=== PATIENT | male | born 1960 | race Caucasian/White ===

== ENCOUNTER → 2020-01-25 | Outpatient (CLI) | payer OTHER | END | disposition home or self-care (01) | LOC: LABWHC1 13:38 | PROVIDERS: ATTEND Pediatrics | DX: Z20.828 Contact with and (suspected) exposure to other viral communicable diseases (principal) | CPT/HCPCS: U0003; C9803 ==

== ENCOUNTER → 2022-03-04 | Outpatient (CLI) | payer MEDICAID | END | disposition home or self-care (01) | LOC: LABWHC1 11:42 | PROVIDERS: ATTEND Urology | DX: R97.20 Elevated prostate specific antigen [PSA] (principal) | CPT/HCPCS: 36415; 84153 ==

== ENCOUNTER 2022-05-12 07:52 | Day surgery (SDC) | payer MEDICAID ==
[2022-05-10 11:58] VITALS: BMI 31.1
[~2022-05-12 07:52] MED LIST: LACTATED RINGERS 1,000 ML IV SCH; LIDOCAINE 1% (10MG/ML) FOR IV START INTRADERMA PRN
[2022-05-12 08:37] VITALS: TEMP 97
[2022-05-12 08:40] LABS: Glucose,Whole Blood 122 mg/dL (70-110)
[2022-05-12] MEDS ORDERED: PROPOFOL 10 MG/ML 20 ML VIAL IV ONE (09:25)
--- NOTE | 2022-05-12 09:45 | P.PCN ---
Date of Procedure: 05/12/22 Procedure(s) Performed: BRIEF HISTORY: Patient is a 61-year-old, pleasant, white male scheduled for an upper endoscopy as a part of evaluation of 1 and history of GERD of several years duration. He is currently. milligrams daily and continues to have daily symptoms and hence scheduled for an upper endoscopy to cook further. PROCEDURE PERFORMED: Esophagogastroduodenoscopy with biopsy PREOPERATIVE DIAGNOSIS: Long stent history of GERD. IV sedation per anesthesia. PROCEDURE: After informed consent was obtained, the patient was brought into the endoscopy unit. IV sedation was administered by Anesthesia under continuous monitoring. Initially the Olympus GIF-140 video endoscope was inserted into the mouth. Esophagus intubated without any difficulty. It was gradually advanced into the stomach and duodenum and carefully examined. The bulb and the second part of the duodenum appeared normal. The scope at this time was withdrawn to the stomach, adequately insufflated with air, and upon careful examination, mucosa of the antrum, had mild gastritis and biopsies were done from this area. The body, cardia and the fundus appeared normal. The scope was then withdrawn into the esophagus. The GE junction was located at 39 cm from the incisors. There was a short segment of Cook's esophagus extending 4-5 mm proximal to the GE junction which was biopsied. The rest of the esophagus appeared normal. There were no erosions or ulcerations seen and the patient tolerated the procedure well. IMPRESSION: 1. Mild antral gastritis. 2. Small hiatal hernia. 3. Short segment Cook'sesophagus. RECOMMENDATIONS: The findings of this examination were discussed with the patient [presence family. He was advised to follow with the biopsythe biopsy reveals presence of Cook's esophagus he can have a repeat upper endoscopy in 3 years. In the meantime I suggested that he increase the omeprazole to 20 mg twice daily and follow antireflux measures.
[2022-05-12 10:20] VITALS: RESP 16
[2022-05-12 10:21] VITALS: BP 154/85; PULSE 62
== END 2022-05-12 10:32 | disposition home or self-care (01) ==
LOC: ORWHC2ENDO 07:52
PROVIDERS: ATTEND Internal Medicine Gastroenterology
DX: K29.50 Unspecified chronic gastritis without bleeding (principal); K21.00 Gastro-esophageal reflux disease with esophagitis, without bleeding; K44.9 Diaphragmatic hernia without obstruction or gangrene; I10 Essential (primary) hypertension; E78.5 Hyperlipidemia, unspecified; E11.9 Type 2 diabetes mellitus without complications; N40.0 Benign prostatic hyperplasia without lower urinary tract symptoms; F90.9 Attention-deficit hyperactivity disorder, unspecified type; Z79.899 Other long term (current) drug therapy; Z90.89 Acquired absence of other organs
CPT/HCPCS: 88305; 43239; J2704

== ENCOUNTER → 2023-07-29 | Outpatient (CLI) | payer MEDICAID | END | disposition home or self-care (01) | LOC: LABWHC1 11:06 | PROVIDERS: ATTEND Urology | DX: C61 Malignant neoplasm of prostate (principal) | CPT/HCPCS: 36415; 84153 ==

== ENCOUNTER → 2024-01-12 | Outpatient (CLI) | payer MEDICAID | END | disposition home or self-care (01) | LOC: LABWHC1 14:27 | PROVIDERS: ATTEND Urology | DX: C61 Malignant neoplasm of prostate (principal) | CPT/HCPCS: 36415; 84153 ==

== ENCOUNTER → 2024-08-06 | Outpatient (CLI) | payer MEDICARE | END | disposition home or self-care (01) | LOC: LABWHC1 13:34 | PROVIDERS: ATTEND Urology | DX: C61 Malignant neoplasm of prostate (principal) | CPT/HCPCS: 36415; 84153 ==